=== PATIENT | female | born 1965 | race African-American/Black ===

== ENCOUNTER 2016-08-24 16:59 | Emergency (ER) | payer SELFPAY ==
[~2016-08-24] VITALS: Ht 175.3 cm; Wt 90.9 kg
[~2016-08-24 16:59] MED LIST: CLON.5 PO; FAMO20 PO; LISI-586 PO; LISI10TA PO; LORTA5 PO
[2016-08-24 17:02] VITALS: BP 121/117; PULSE 73; RESP 17; TEMP 97.8; O2SAT 96
[2016-08-24 17:15] VITALS: BP 188/96; PULSE 66; RESP 16; O2SAT 98
--- NOTE | 2016-08-24 17:41 | PD ---
HPI Chief Complaint: Headache Time Seen by Provider: 17:41 Travel History International Travel<30 days: No Contact w/Intl Traveler<30days: No Traveled to known affect area: No History of Present Illness HPI 50-year-old Afro-[place] female coming in with 2 day history of pressure-like history across the forehead and upper scalp which started last evening is progressed and continued for the last 24 hours. Patient has a history of hypertension for which she normally takes lisinopril/hydrochlorothiazide 20/12.5 , which she has been out for "quite some time". Patient denies visual changes, dizziness, fever, chills, sore throat, shortness breath, or chest pain. Patient has no history of migraines. Patient states she gets headaches when her blood pressure is elevated. Patient has had no nausea or vomiting. Patient states her headache pain is 9/10, but not the worst headache of her life. Patient's blood pressure is noted to be markedly elevated at 238/110. Patient states he is allergic to morphine and ibuprofen. PFSH Past Medical History Arthritis: Yes Anxiety: Yes (CLASTROPHOBIA) Cancer: No Cardiovascular Problems: Yes (HX OF [place]) Chemotherapy: No Chest Pain: Yes Diminished Hearing: No Endocrine: No Genitourinary: Yes Hypertension: Yes Immune Disorder: No Implanted Vascular Access Dvce: No Kidney Stones: Yes (PT REPORTS SHE HAD A SONE IN HER GALLBLADDER) Musculoskeletal: Yes Neurologic: No Psychiatric: Yes Reproductive: No Respiratory: No Myocardial Infarction: Yes Radiation Therapy: No : 5 Para: 4 Miscarriage: 1 Tubal Ligation: Yes Past Surgical History Abdominal Surgery: Yes (GALLBLADDER REMOVAL) Section: Yes (x 2) Cholecystectomy: Yes Endocrine Surgery: Yes Gynecologic Surgery: Yes (2 C- SECTIONS) Other Surgery: Yes Social History Alcohol Use: Yes (RARELY) Tobacco Use: No Substance Use: No Allergies-Medications (Allergen,Severity, Reaction): Coded Allergies: Ibuprofen (Verified Adverse Reaction, Severe, Dyspepsia, 08/24/16) HAS TO EAT WITH MEDICATION Morphine (Verified Adverse Reaction, Severe, N/V, 08/24/16) Reported Meds & Prescriptions Reported Meds & Active Scripts Active Blood Pressure Kit/Arm Cuff 1 Mis Mis 1 Ea .ROUTE DIRECTED Hydrochlorothiazide 12.5 Mg Tab 12.5 Mg PO DAILY Lisinopril 20 Mg Tab 20 Mg PO DAILY Zestoretic 20/12.5 (Lisinopril/Hctz 20 mg/12.5 mg) 20 Mg/12.5 Mg Tab 1 Tab PO DAILY 30 Days Hydrocodone/Acetaminophen 5 mg/325 mg 1 Tab 1 Tab PO Q6H PRN Pepcid 20 Mg Ta20 Mg 20 Mg Tab 20 Mg PO DAILY Reported Klonopin (Clonazepam) 0.5 Mg Tab 0.5 Mg PO BID PRN Lisinopril/Hctz 10 mg/12.5 mg 10 mg/12.5 mg Tab 1 Tab PO DAILY Review of Systems Except as stated in HPI: all other systems reviewed are Neg General / Constitutional: No: Fever Eyes: No: Diploplia, Blurred Vision, Photophobia, Drainage, Redness, Foreign Body Sensation, Pain, Tearing, Blind Spots, Visual changes, Blindness HENT: Positive: Headaches (see history of present illness), No: Vertigo, Lightheadedness, Sore Throat, Rhinitis, Rhinorrhea, Congestion, Neck Stiffness, Neck Pain Cardiovascular: No: Chest Pain or Discomfort, Palpitations, Irregular Rhythm, Tachycardia, Diaphoresis Respiratory: No: Cough, Shortness of Breath, Wheezing Gastrointestinal: No: Nausea, Vomiting, Diarrhea, Abdominal Pain Genitourinary: No: Dysuria Musculoskeletal: No: Pain Skin: No Rash Neurologic: Positive: Headache, No: Weakness, Dizziness, Syncope, Focal Abnormalities, Coordination Problem, Tremor, Ataxia, Change in Mentation, Slurred Speech, Paresthesia, Incontinence, Seizures, Sensory Disturbance Psychiatric: No: Depression Endocrine: No: Polydipsia Hematologic/Lymphatic: No: Easy Bruising Physical Exam Narrative GENERAL: Patient appears in mild distress. She is talkative and animated. SKIN: Warm and dry. Normal color. Normal turgor. No diaphoresis. HEAD: Atraumatic. Normocephalic. EYES: Pupils equal and round. No scleral icterus. No injection or drainage. Ophthalmoscopic exam is unremarkable at this time. ENT: No nasal bleeding or discharge. Mucous membranes pink and moist. Pharynx is clear. NECK: Trachea midline. No JVD. Supple and nontender. CARDIOVASCULAR: Regular rate and rhythm. No murmurs gallops or rubs. RESPIRATORY: No accessory muscle use. Clear to auscultation. Breath sounds equal bilaterally. GASTROINTESTINAL: Abdomen soft, non-tender, nondistended. Hepatic and splenic margins not palpable. MUSCULOSKELETAL: Extremities without clubbing, cyanosis, or edema. No obvious deformities. NEUROLOGICAL: Awake and alert. No obvious cranial nerve deficits. Motor grossly within normal limits. Five out of 5 muscle strength in the arms and legs. Normal speech. PSYCHIATRIC: Appropriate mood and affect; insight and judgment normal. Data Data Last Documented VS Vital Signs Date Time Temp Pulse Resp B/P Pulse Ox O2 Delivery O2 Flow Rate FiO2 08/24/16 19:09 63 18 151/81 96 Room Air 08/24/16 17:02 97.8 Orders Electrocardiogram (08/24/16 17:49) Complete Blood Count With Diff (08/24/16 17:49) Comprehensive Metabolic Panel (08/24/16 17:49) Troponin I (08/24/16 17:49) Chest, Single Ap (08/24/16 17:49) Ecg Monitoring (08/24/16 17:49) Bilateral Bp Monitoring (08/24/16 17:49) Iv Access Insert/Monitor (08/24/16 17:49) Oximetry (08/24/16 17:49) Oxygen Administration (08/24/16 17:49) Aspirin Chew (Aspirin Chew) (08/24/16 18:00) Sodium Chloride 0.9% Flush (Ns Flush) (08/24/16 18:00) Clonidine (Catapres) (08/24/16 18:00) Lisinopril (Prinivil) (08/24/16 18:00) Clonidine (Catapres) (08/24/16 18:00) Labs Laboratory Tests Test 08/24/16 18:50 White Blood Count 7.7 TH/MM3 Red Blood Count 4.41 MIL/MM3 Hemoglobin 12.7 GM/DL Hematocrit 37.7 % Mean Corpuscular Volume 85.7 FL Mean Corpuscular Hemoglobin 28.7 PG Mean Corpuscular Hemoglobin 33.6 % Concent Red Cell Distribution Width 14.0 % Platelet Count 237 TH/MM3 Mean Platelet Volume 8.4 FL Neutrophils (%) (Auto) 55.1 % Lymphocytes (%) (Auto) 30.6 % Monocytes (%) (Auto) 8.4 % Eosinophils (%) (Auto) 5.0 % Basophils (%) (Auto) 0.9 % Neutrophils # (Auto) 4.2 TH/MM3 Lymphocytes # (Auto) 2.4 TH/MM3 Monocytes # (Auto) 0.7 TH/MM3 Eosinophils # (Auto) 0.4 TH/MM3 Basophils # (Auto) 0.1 TH/MM3 CBC Comment DIFF FINAL Differential Comment Sodium Level 141 MEQ/L Potassium Level 4.1 MEQ/L Chloride Level 108 MEQ/L Carbon Dioxide Level 26.0 MEQ/L Anion Gap 7 MEQ/L Blood Urea Nitrogen 9 MG/DL Creatinine 0.61 MG/DL Estimat Glomerular Filtration 126 ML/MIN Rate Random Glucose 102 MG/DL Calcium Level 8.8 MG/DL Total Bilirubin 0.2 MG/DL Aspartate Amino Transf 13 U/L (AST/SGOT) Alanine Aminotransferase 22 U/L (ALT/SGPT) Alkaline Phosphatase 82 U/L Troponin I LESS THAN 0.02 NG/ML Total Protein 7.7 GM/DL Albumin 3.8 GM/DL MDM Medical Decision Making Medical Screen Exam Complete: Yes Emergency Medical Condition: Yes Differential Diagnosis Headache. Hypertensive crisis. Need for medication renewal. Narrative Course Patient is felt medically stable at time of exam. Labs ordered including CBC, CMP, and troponin. Patient is given 0.2 mg clonidine by mouth. Patient is given [address] by mouth. CT of the head is not felt to be necessary based on the patient's history and physical. 1645 hrs. patient is evaluated by Dr. Portillo, and patient states her headache is improved. Blood pressure is slightly improved as well as 183/84. Labs are still pending. Labs are within normal limits. Troponin is 0.02. Patient is felt stable to be discharged home. Patient is given prescription for lisinopril 20 mg daily. #30. Patient is given ibuprofen at 12.5 mg daily. #30. Patient is to follow with her primary care physician as discussed. Patient may return to emergency Department with worsening symptoms as needed. Diagnosis Primary Impression: HTN (hypertension) Qualified Code: I10 - Essential hypertension Referrals: Primary Care Physician Patient Instructions: 3 Gram Sodium Diet (GEN), Chronic Hypertension (DC), General Instructions Additional Instructions: Labs are within normal limits. Troponin is 0.02. Patient is felt stable to be discharged home. Patient is given prescription for lisinopril 20 mg daily. #30. Patient is given ibuprofen at 12.5 mg daily. #30. Patient is to follow with her primary care physician as discussed. Patient may return to emergency Department with worsening symptoms as needed. Scripts Blood Pressure Kit/Arm Cuff 1 Mis Mis #1 EA .ROUTE DIRECTED Ref 0 Prov:Julia Portillo MD 08/24/16 Hydrochlorothiazide 12.5 Mg Tab12.5 Mg PO DAILY #30 TAB Ref 0 Prov:Julia Portillo MD 08/24/16 Lisinopril 20 Mg Tab20 Mg PO DAILY #30 TAB Ref 0 Prov:Julia Portillo MD 08/24/16 Disposition: 01 DISCHARGE HOME Condition: Stable Edmund Gilbert Aug 24, 2016 17:41
[2016-08-24] MEDS ORDERED: LISINOPRIL 20 MG TAB PO ONE (18:00)
[2016-08-24] MEDS ORDERED: cloNIDine HCL 0.2 MG TAB PO ONE (18:00)
[2016-08-24] MEDS ORDERED: cloNIDine HCL 0.1 MG TAB PO ONE (18:00)
[2016-08-24] MEDS ORDERED: ASPIRIN 81 MG CHEW TAB PO ONE (18:00)
[2016-08-24] MEDS ORDERED: SODIUM CHLORIDE 0.9% FLUSH 5 ML FLUSH IVF PRN (18:00)
--- NOTE | 2016-08-24 18:35 | RADRPT ---
EXAM DATE/TIME: 08/24/2016 18:04 [facility] COMPARISON: CHEST SINGLE AP, January 09, 2015, 12:41. INDICATIONS : Shortness of breath and high blood pressure. MEDICAL HISTORY : Hypertension. Myocardial infarction. SURGICAL HISTORY : None. ENCOUNTER: Initial ACUITY: 1 day PAIN SCORE: 0/10 LOCATION: Bilateral chest FINDINGS: A single view of the chest demonstrates the lungs to be symmetrically aerated without evidence of mas s, infiltrate or effusion. The cardiomediastinal contours are unremarkable. Osseous structures are intact with some degenerative spurring of the dorsal spine. CONCLUSION: No acute cardiopulmonary process. Richie Lemus MD on August 24, 2016 at 18:32 Board Certified Radiologist. This report was verified electronically.
[2016-08-24 18:40] VITALS: RESP 18; O2SAT 98
[2016-08-24 18:41] VITALS: BP_SYST 171; BP_SYST 183; BP_DIAS 78; BP_DIAS 84; PULSE 70
[2016-08-24 19:00] LABS: AUTOMATED NEUTROPHIL # 4.2 TH/MM3 (1.8-7.7); BASOPHIL # 0.1 TH/MM3 (0-0.2); BASOPHIL % 0.9 % (0.0-2.0); EOSINOPHIL # 0.4 TH/MM3 (0-0.4); HEMATOCRIT 37.7 % (35.0-46.0); HEMO FLAGS DIFF FINAL; LYMPH % 30.6 % (9.0-44.0); LYMPHOCYTE # 2.4 TH/MM3 (1.0-4.8); MEAN CELL VOLUME 85.7 FL (80.0-100.0); MEAN CORPUSCULAR HEMOGLOBIN 28.7 PG (27.0-34.0); MEAN CORPUSCULAR HGB CONC 33.6 % (32.0-36.0); MONO % 8.4 % (0.0-8.0); NEUT % 55.1 % (16.0-70.0); PLATELET COUNT 237 TH/MM3 (150-450); RED BLOOD COUNT 4.41 MIL/MM3 (4.00-5.30); WHITE BLOOD COUNT 7.7 TH/MM3 (4.0-11.0)
[2016-08-24] MEDS ORDERED: BLOOD PRESSURE1 M20 (19:08)
[2016-08-24] MEDS ORDERED: HYDR12.56 PO (19:08)
[2016-08-24] MEDS ORDERED: LISI-515 PO (19:08)
[2016-08-24 19:09] VITALS: BP 151/81; PULSE 63; RESP 18; O2SAT 96
--- NOTE | 2016-08-24 19:12 | PD ---
Data Data Last Documented VS Vital Signs Date Time Temp Pulse Resp B/P Pulse Ox O2 Delivery O2 Flow Rate FiO2 08/24/16 19:09 63 18 151/81 96 Room Air 08/24/16 17:02 97.8 Orders Electrocardiogram (08/24/16 17:49) Complete Blood Count With Diff (08/24/16 17:49) Comprehensive Metabolic Panel (08/24/16 17:49) Troponin I (08/24/16 17:49) Chest, Single Ap (08/24/16 17:49) Ecg Monitoring (08/24/16 17:49) Bilateral Bp Monitoring (08/24/16 17:49) Iv Access Insert/Monitor (08/24/16 17:49) Oximetry (08/24/16 17:49) Oxygen Administration (08/24/16 17:49) Aspirin Chew (Aspirin Chew) (08/24/16 18:00) Sodium Chloride 0.9% Flush (Ns Flush) (08/24/16 18:00) Clonidine (Catapres) (08/24/16 18:00) Lisinopril (Prinivil) (08/24/16 18:00) Clonidine (Catapres) (08/24/16 18:00) Labs Laboratory Tests Test 08/24/16 18:50 White Blood Count 7.7 TH/MM3 Red Blood Count 4.41 MIL/MM3 Hemoglobin 12.7 GM/DL Hematocrit 37.7 % Mean Corpuscular Volume 85.7 FL Mean Corpuscular Hemoglobin 28.7 PG Mean Corpuscular Hemoglobin 33.6 % Concent Red Cell Distribution Width 14.0 % Platelet Count 237 TH/MM3 Mean Platelet Volume 8.4 FL Neutrophils (%) (Auto) 55.1 % Lymphocytes (%) (Auto) 30.6 % Monocytes (%) (Auto) 8.4 % Eosinophils (%) (Auto) 5.0 % Basophils (%) (Auto) 0.9 % Neutrophils # (Auto) 4.2 TH/MM3 Lymphocytes # (Auto) 2.4 TH/MM3 Monocytes # (Auto) 0.7 TH/MM3 Eosinophils # (Auto) 0.4 TH/MM3 Basophils # (Auto) 0.1 TH/MM3 CBC Comment DIFF FINAL Differential Comment MDM Supervised Visit with SHAGGY: Yes Narrative Course The history, exam, and medical decision-making in the associated midlevel provider note were completed with my assistance. I reviewed and agree with the findings presented. I attest that I had a [id number] encounter with the patient on the same day, and personally performed and documented my assessment and findings in the medical record. *My assessment and Findings: This is a 50-year-old female with a history of hypertension who presents to the emergency department with headache. Patient ran out of her blood pressure medications. She has a normal neurologic exam so I doubt intracranial hemorrhage. Labs are obtained which were reassuring. Patient's blood pressure improved with lisinopril and clonidine. Patient can be discharged home to follow-up as an outpatient. Scripts Blood Pressure Kit/Arm Cuff 1 Mis Mis #1 EA .ROUTE DIRECTED Ref 0 Prov:Julia Portillo MD 08/24/16 Hydrochlorothiazide 12.5 Mg Tab12.5 Mg PO DAILY #30 TAB Ref 0 Prov:Julia Portillo MD 08/24/16 Lisinopril 20 Mg Tab20 Mg PO DAILY #30 TAB Ref 0 Prov:Julia Portillo MD 08/24/16 Julia Portillo MD Aug 24, 2016 19:12
[2016-08-24 19:30] LABS: ANION GAP 7 MEQ/L (5-15); AST (GOT) 13 U/L (15-37); BLOOD UREA NITROGEN 9 MG/DL (7-18); CHLORIDE 108 MEQ/L (98-107); GLOMERULAR FILTRATION RATE 126 ML/MIN (>89); POTASSIUM 4.1 MEQ/L (3.5-5.1); SODIUM (NA) 141 MEQ/L (136-145)
[2016-08-24 19:36] LABS: ALKALINE PHOSPHATASE 82 U/L (45-117); ALT (GPT) 22 U/L (10-53); TOTAL BILIRUBIN ADULT 0.2 MG/DL (0.2-1.0)
--- NOTE | 2016-08-25 17:02 | EKG ---
Date Performed: 08/24/2016 Time Performed: 19:01:36 PTAGE: 50 years EKG: SINUS BRADYCARDIA VOLTAGE CRITERIA FOR LVH NONSPECIFIC T-WAVE ABNORMALITY Compared to prior tracing no significant change ABNORMAL ECG PREVIOUS TRACING : 01/09/2015 12.00 DOCTOR: Jillian Gaitan Interpretating Date/Time 08/25/2016 17:00:33
== END 2016-08-24 20:19 | disposition home or self-care (01) ==
LOC: NEPE 16:59
DX: I10 Essential (primary) hypertension (principal); R51 Headache; R00.1 Bradycardia, unspecified; I25.2 Old myocardial infarction
CPT/HCPCS: 71010; 80053; 84484; 85025; 93005

== ENCOUNTER 2017-07-06 00:40 | Emergency (ER) | payer OTHER ==
[~2017-07-06] VITALS: Ht 175.3 cm; Wt 100.0 kg
[~2017-07-06 00:40] MED LIST changes: +BLOOD PRESSURE1 M20; +HYDR12.56 PO; +LISI-515 PO
[2017-07-06 00:50] VITALS: BP 202/90; PULSE 102; RESP 17; TEMP 98.4; O2SAT 96
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
[2017-07-07] MEDS ORDERED: ROBA750T PO (16:45)
== END 2017-07-06 02:07 | disposition home or self-care (01) ==
LOC: NEPD 00:40
DX: S80.12XA Contusion of left lower leg, initial encounter (principal); M19.90 Unspecified osteoarthritis, unspecified site; F41.9 Anxiety disorder, unspecified; F40.240 Claustrophobia; I10 Essential (primary) hypertension; I25.2 Old myocardial infarction; V49.50XA Passenger injured in collision with unspecified motor vehicles in traffic accident, initial encounter; Z79.899 Other long term (current) drug therapy; Z88.6 Allergy status to analgesic agent
CPT/HCPCS: 73590; 99283

== ENCOUNTER 2017-07-07 14:46 | Emergency (ER) | payer SELFPAY ==
[~2017-07-07] VITALS: Ht 175.3 cm; Wt 102.3 kg
[2017-07-07 14:47] VITALS: BP 183/88; PULSE 85; RESP 20; TEMP 98.9; O2SAT 98
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
[2017-07-07] MEDS ORDERED: ROBA750T PO (16:45)
[2017-07-07] MEDS ORDERED: IBUPROFEN 800 MG TAB PO ONE (17:15)
== END 2017-07-07 17:15 | disposition home or self-care (01) ==
LOC: NEPK 14:46
DX: S20.02XA Contusion of left breast, initial encounter (principal); S16.1XXA Strain of muscle, fascia and tendon at neck level, initial encounter; I10 Essential (primary) hypertension; F41.9 Anxiety disorder, unspecified; I25.2 Old myocardial infarction; V43.62XA Car passenger injured in collision with other type car in traffic accident, initial encounter; Z79.899 Other long term (current) drug therapy; Z88.6 Allergy status to analgesic agent
CPT/HCPCS: 71010; 72040; 99283

== ENCOUNTER 2017-12-18 07:34 | Emergency (ER) | END 2017-12-18 08:56 | disposition home or self-care (01) | DX: H10.9 Unspecified conjunctivitis (principal); I10 Essential (primary) hypertension; Z76.0 Encounter for issue of repeat prescription ==